=== PATIENT | male | born 1980 | race Caucasian/White ===

== ENCOUNTER 2016-04-01 18:36 | Emergency (ER) | payer MEDICAID, OTHER ==
[2016-04-01] MEDS ORDERED: ONDANSETRON DISINTEGRATING 4 MG TAB PO ONE (18:44)
[2016-04-01] MEDS ORDERED: ONDANSETRON DISINTEGRATING 4 MG TAB ONE (18:46)
--- NOTE | 2016-04-01 20:03 | EDPHY ---
H & P Time Seen by Provider: 04/01/16 20:02 HPI/ROS: CHIEF COMPLAINT: Abdominal pain, vomiting. HISTORY OF PRESENT ILLNESS: This is a 35-year-old male with alcoholism who presents with abdominal pain and vomiting for the last 3 days. The abdominal pain is 8/10 and persistent, located in the epigastrium. He stopped drinking 3 days ago because of vomiting. He has a history of excessive alcohol use until he begins to vomit and have severe pain. He has been unable to eat over the past 2 days but has been sipping water and tea. Prior ED visits for similar symptoms and is usually discharged after fluids and pain medications. He denies black stool or hematemesis but thinks there may have been red streaks in his vomit yesterday. He denies prior pancreatitis. REVIEW OF SYSTEMS: A complete 10-point review of systems was performed and is negative except for those items mentioned in the HPI. Past Medical/Surgical History: Denies. Social History: Alcoholic, smoker. Smoking Status: Current every day smoker Physical Exam: General Appearance: Alert, nontoxic Eyes: Pupils equal and round, no conjunctival pallor or injection ENT, Mouth: Mucous membranes moist Neck: Normal inspection Respiratory: Lungs are clear to auscultation Cardiovascular: Regular rate and rhythm Gastrointestinal: Abdomen is soft, epigastric tenderness, normal bowel sounds Neurological: A&O, nonfocal, normal gait Skin: Warm and dry, no rash Extremities: Nontender, no pedal edema Psychiatric: Mood and affect normal Constitutional: Initial Vital Signs Temperature (C) 36.5 C 04/01/16 18:40 Heart Rate 114 H 04/01/16 18:40 Respiratory Rate 22 H 04/01/16 18:40 Blood Pressure 136/97 H 04/01/16 18:40 O2 Sat (%) 97 04/01/16 18:40 O2 Delivery Mode Room Air Allergies/Adverse Reactions: No Known Allergies Allergy (Unverified 04/01/16 18:40) Home Medications: Medication Instructions Recorded Mylanta Liquid 04/01/16 Ondansetron Odt [Zofran Odt 4 mg 4 mg PO Q4 PRN #6 tab 04/01/16 (*)] Pantoprazole Sodium [Protonix 40mg 40 mg PO DAILY #20 tab 04/01/16 (*)] Medical Decision Making ED Course/Re-evaluation: An IV was established and labs ordered. 1L IV saline administered for hydration , along with 4mg IV Morphine for pain and 4mg IV Zofran for nausea. 9:00 p.m.-feels much better, wants to go home. Abdominal exam is benign. Laboratory tests reviewed. Abn lab tests, consistent with alcoholic ketoacidosis, but he is actually feeling much better and well appearing. Leukocytosis noted and is consistent with repeated vomiting. There is no evidence of infectious etiology for his symptoms. Given that he is tolerating oral fluids well, I will discharge him home. Tolerating oral fluids well. Differential Diagnosis: Differential diagnosis includes though it is not limited to appendicitis, cholecystitis, diverticulitis, pyelonephritis, bowel perforation, small bowel obstruction. - Data Points Laboratory Results: Laboratory Results 04/01/16 19:45 04/01/16 19:45 Medications Given: Discontinued Medications Sodium Chloride (Ns) 1,000 mls @ 0 mls/hr IV ONCE ONE PRN Reason: Wide Open Stop: 04/01/16 20:22 Last Admin: 04/01/16 20:00 Dose: 1,000 mls Pantoprazole Sodium 40 mg/ (Sodium Chloride) 100 mls @ 200 mls/hr IV EDNOW ONE Stop: 04/01/16 21:30 Last Admin: 04/01/16 21:25 Dose: 100 mls Sodium Chloride (Ns) 1,000 mls @ 0 mls/hr IV ONCE ONE PRN Reason: Wide Open Stop: 04/01/16 21:26 Last Admin: 04/01/16 21:30 Dose: 1,000 mls Morphine Sulfate (Morphine) 4 mg IVP EDNOW ONE Stop: 04/01/16 20:22 Last Admin: 04/01/16 20:44 Dose: 4 mg Ondansetron HCl (Zofran Odt) 4 mg PO EDNOW ONE Stop: 04/01/16 18:45 Last Admin: 04/01/16 18:46 Dose: 4 mg Departure - Departure Disposition: Home, Routine, Self-Care Clinical Impression: Abdominal pain Qualifiers: Qualifier Code: (R10.13) Epigastric pain Vomiting Qualifiers: Qualifier Code: (R11.2) Nausea with vomiting, unspecified Diarrhea Qualifiers: Qualifier Code: (R19.7) Diarrhea, unspecified Condition: Good Instructions: Abdominal Pain (ED), Acute Nausea and Vomiting (ED), Dehydration (ED) Additional Instructions: Drink plenty of fluids. Follow up with your primary care provider this week for reevaluation. If you need a primary care provider you have been given the telephone number of Dr. Brennan, outpatient medicine. Return to the emergency department for any serious worsening of condition. Referrals: Jim Brennan, [Doctor of Osteopathy] - As per Instructions Prescriptions: Pantoprazole Sodium [Protonix 40mg (*)] 40 mg PO DAILY #20 tab Ondansetron Odt [Zofran Odt 4 mg (*)] 4 mg PO Q4 PRN #6 tab PRN Reason: Nausea Report Scribed for: Andreia Pitt Report Scribed by: Lloyd Benedr Date of Report: 04/01/16 Time of Report: 20:07 Physician Review and Approval Statement: 04/01/16 20:07 Portions of this note were transcribed by a medical fee clerk. I personally performed a history, physical exam, medical decision making, and confirmed accuracy of information the transcribed note.
[2016-04-01 20:04] LABS: % IMMATURE GRANULYOCYTES 0.7 % (0.0-1.1); ABSOLUTE IMMATURE GRANULOCYTES 0.18 10^3/uL (0.00-0.10); ADD DIFF? NO; ADD MORPH? NO; ADD SCAN? NO; ATYPICAL LYMPHOCYTE FLAG 0 (0-99); FRAGMENT RBC FLAG 0 (0-99); HEMATOCRIT 49.1 % (40.0-51.0); HEMOGLOBIN 17.4 g/dL (13.7-17.5); LEFT SHIFT FLG 0 (0-99); LIPEMIA HEMOLYSIS FLAG 90 (0-99); MEAN CELL HEMOGLOBIN CONCENTR. 35.4 g/dL (32.4-36.7); MEAN CELL VOLUME 87.4 fL (81.5-99.8); MEAN PLATELET VOLUME 8.8 fL (8.7-11.7); PLATELET CLUMPS FLAG 0 (0-99); PLATELET COUNT 314 10^3/uL (150-400); RED BLOOD CELL COUNT 5.62 10^6/uL (4.40-6.38); RED CELL DISTRIBUTION WIDTH 12.3 % (11.5-15.2)
[2016-04-01 20:11] LABS: ANION GAP 35 mEq/L (8-16); CALCIUM 9.7 mg/dL (8.5-10.4); CARBON DIOXIDE 10 mEq/l (22-31); CHLORIDE 93 mEq/L (97-110); CREATININE 1.1 mg/dL (0.7-1.3); GLOMERULAR FILTRATION RATE > 60; GLUCOSE 152 mg/dL (70-100); POTASSIUM 5.3 mEq/L (3.5-5.2); SODIUM 138 mEq/L (134-144)
[2016-04-01] MEDS ORDERED: NS 1,000 ML IV ONE ×2 (20:21→21:25)
[2016-04-01 20:48] LABS: ALBUMIN 5.8 g/dL (3.5-5.0); BILIRUBIN,TOTAL 1.9 mg/dL (0.1-1.4); BILIRUBIN-CONJUGATED 1.1 mg/dL (0.0-0.5); BILIRUBIN-UNCONJUGATED 0.8 mg/dL (0.0-1.1); TOTAL PROTEIN 9.2 g/dL (6.3-8.2)
[2016-04-01 21:00] VITALS: RESP 16
[2016-04-01] MEDS ORDERED: PANTOPRAZOLE SODIUM 40 MG in NS 100 ML IV ONE (21:01)
[2016-04-01] MEDS ORDERED: PANTOPRAZOLE SODIUM 40 MG VIAL ONE (21:21)
[2016-04-01 22:03] VITALS: BP 118/78; PULSE 80; TEMP 97.9; O2SAT 94
== END 2016-04-01 22:02 | disposition home or self-care (01) ==
DX: R10.13 Epigastric pain (principal); R11.2 Nausea with vomiting, unspecified; R19.7 Diarrhea, unspecified; F17.200 Nicotine dependence, unspecified, uncomplicated
CPT/HCPCS: 96365